=== PATIENT | male | born 1985 | race Caucasian/White ===

== ENCOUNTER 2024-12-02 13:53 | Emergency (ER) | payer MEDICAID, OTHER ==
[~2024-12-02] VITALS: Ht 175.3 cm; Wt 120.7 kg
[2024-12-02] MEDS ORDERED: MECLIZINE HCL 25 MG TABLET ONE (14:20)
[2024-12-02] MEDS ORDERED: ONDANSETRON HCL/PF 4 MG/2 ML VIAL ONE (14:25)
[2024-12-02] MEDS: IV NS 0.9% 1,000 ML BAG IV ONE (14:30)
[2024-12-02] MEDS: MECLIZINE HCL 25 MG TABLET PO ONE (14:30)
[2024-12-02] MEDS: ONDANSETRON 4 MG TAB.RAPDIS SL ONE (14:33)
[2024-12-02] MEDS: ONDANSETRON HCL/PF - ER 4 MG/2 ML VIAL IV ONE (14:33)
[2024-12-02 14:48] LABS: PLATELET COUNT (AUTO) 170 K/uL (150-450); RED BLOOD CELL COUNT(AUTO) 5.91 MIL/uL (4.5-6.0); RED CELL DISTRIBUTION WIDTH 12.7 % (11.5-15.0); WHITE BLOOD COUNT (AUTO) 7.0 K/uL (4.3-11.0)
[2024-12-02 14:56] LABS: CALCIUM, SERUM 9.7 mg/dL (8.5-10.1); CREATININE 1.2 mg/dL (0.6-1.3); SODIUM SERUM 139 mmol/L (136-145); UREA NITROGEN, BLOOD 11 mg/dL (7-18)
[2024-12-02 15:02] LABS: ASPARTATE AMINOTRANSFERASE 29 U/L (15-37); TOTAL PROTEIN, SERUM 8.2 g/dL (6.4-8.2)
[2024-12-02] MEDS ORDERED: MECL-159 PO (15:28)
[2024-12-02 15:52] VITALS: BP 161/91; TEMP 98.6; O2SAT 98
== END 2024-12-02 15:52 | disposition home or self-care (01) ==
LOC: ER 14:00
DX: R42 Dizziness and giddiness (principal); I10 Essential (primary) hypertension; R11.0 Nausea; E11.9 Type 2 diabetes mellitus without complications
CPT/HCPCS: 99285; 96374; 71045; 96361; 93005; 85025; 80048; 80076; 36415; 84484; 82962; J8597; J2405; J7030